=== PATIENT | female | born 2005 | race Caucasian/White ===

== ENCOUNTER 2025-04-15 07:59 | Outpatient (CLI) | payer OTHER ==
[2025-04-15] MEDS ORDERED: Sincalide 5 MCG VIAL ONE (09:43)
[2025-04-15] MEDS ORDERED: Bacteriostatic Normal Saline 30 ML VIAL ONE (09:43)
== END 2025-04-15 08:00 | disposition home or self-care (01) ==
LOC: NM 07:59
DX: R10.11 Right upper quadrant pain (principal)
CPT/HCPCS: 78227; A9537; J2805